=== PATIENT | female | born 1995 | race Caucasian/White ===

== ENCOUNTER 2018-09-02 16:48 | Emergency (ER) | payer OTHER ==
[~2018-09-02] VITALS: Ht 175.3 cm; Wt 81.6 kg
[2018-09-02 16:55] VITALS: BP 145/87
[2018-09-02] MEDS ORDERED: HYDR-3164 PO (17:25)
[2018-09-02] MEDS ORDERED: IBUP-1007 PO (17:25)
[2018-09-02] MEDS ORDERED: ORPH100T PO (17:25)
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
== END 2018-09-02 17:42 | disposition home or self-care (01) ==
LOC: ER 16:48
DX: S16.1XXA Strain of muscle, fascia and tendon at neck level, initial encounter (principal); S39.012A Strain of muscle, fascia and tendon of lower back, initial encounter; S80.01XA Contusion of right knee, initial encounter; Z88.1 Allergy status to other antibiotic agents; V43.52XA Car driver injured in collision with other type car in traffic accident, initial encounter; Y93.89 Activity, other specified; Y92.410 Unspecified street and highway as the place of occurrence of the external cause; Y99.8 Other external cause status
CPT/HCPCS: 99283